=== PATIENT | male | born 1990 | race Caucasian/White ===

== ENCOUNTER 2021-07-08 08:58 | Emergency (ER) | payer SELFPAY ==
[~2021-07-08] VITALS: Ht 193 cm; Wt 116.0 kg
[~2021-07-08 08:58] MED LIST: NO HOME MEDS
[2021-07-08 10:20] VITALS: BP 134/79
== END 2021-07-08 10:20 | disposition home or self-care (01) | DRG 179 ==
LOC: ED 08:58
DX: U07.1 COVID-19 (principal); F17.200 Nicotine dependence, unspecified, uncomplicated